=== PATIENT | female | born 1955 | race Native Hawaiian/Other Pacific Islander ===

== ENCOUNTER 2016-09-24 11:16 | Outpatient (CLI) | payer BC | END 2016-09-24 23:01 | disposition home or self-care (01) | LOC: RAD 11:16 | DX: M25.511 Pain in right shoulder (principal) ==

== ENCOUNTER 2019-12-22 09:39 | Outpatient (CLI) | payer OTHER, BC | END 2019-12-22 22:32 | disposition home or self-care (01) | LOC: RAD 09:39 | DX: J98.01 Acute bronchospasm (principal) ==